=== PATIENT | male | born 1950 | race Caucasian/White ===

== ENCOUNTER → 2023-04-09 | Outpatient (REF) | payer OTHER, SELFPAY | LOC: DHSLP | PROVIDERS: ATTENDING PHYSICIAN Internal Medicine; FAMILY PHYSICIAN Family Medicine | DX: G47.19 Other hypersomnia (principal); R06.83 Snoring | CPT/HCPCS: 95800 ==

== ENCOUNTER → 2023-05-12 | Outpatient (REF) | payer OTHER, SELFPAY | LOC: DHSLP | PROVIDERS: ATTENDING PHYSICIAN Internal Medicine; FAMILY PHYSICIAN Family Medicine | DX: G47.33 Obstructive sleep apnea (adult) (pediatric) (principal); G47.61 Periodic limb movement disorder | CPT/HCPCS: 95810 ==

== ENCOUNTER 2023-07-21 15:21 | Emergency (ER) | payer OTHER, SELFPAY ==
[2023-07-21 15:23] VITALS: BP 139/71
[2023-07-21 15:24] VITALS: BMI 34.0
--- NOTE | 2023-07-21 17:17 | ED.GENMED ---
History of Present Illness
General
Chief Complaint: Extremity Pain (non-traumatic)
Time Seen by Provider: 07/21/23 15:53
Travel History
Have you had any contact with someone who has COVID-19?: No
Do you have any symptoms of coronavirus? Fever > 100 degrees, chills, cough, shortness of breath, sore throat, loss of taste or smell, muscle aches, or headache?: No
History of Present Illness
History of Present Illness:
73-year-old male presents emergency department for evaluation of right posterior knee pain has been ongoing for the past 2 weeks but worsening since onset. No associated fevers or chills. Was seen by his primary care physician and started on a
course of prednisone which did not help his symptoms. He is able to ambulate.
Review of Systems
Review of Systems
Allergies reviewed?: Yes
All Other Systems: ROS reviewed and negative except as documented in HPI and ROS
Phy Exam
Physical Exam
Physical Exam:
GEN: Well appearing, NAD, WDWN
HEENT: Oral mucosa moist, no scleral icterus
Cardiac: Regular rate
Lung: No respiratory distress, no tachypnea
MSK: No gross deformity or injuries. Right knee range of motion is normal with moderate pain elicited at terminal flexion. There is no obvious joint effusion.
Skin: Good color, no pallor or jaundice, no rashes
Neuro: AO x3, moves all extremities freely
Psych: Calm, cooperative
Course
Orders/Labs/Results
Orders:
Orders
07/21/23 15:29
Periph Venous Lwr Ext Rt US [US Periph Venous LOWER Ext RT] Urgent
Comment:
Reason For Exam: pain/swelling
07/21/23 16:35
CR Knee- Right 4 Or More View* Urgent
Comment:
Reason For Exam: non traumatic R knee pain
Vital Signs
Initial and Last Documented VS:
Initial Vital Signs
Temp Pulse Resp BP Pulse Ox
98.9 F 61 20 139/71 96
07/21/23 15:23 07/21/23 15:23 07/21/23 15:23 07/21/23 15:23 07/21/23 15:23
Last Documented Vital Signs
Temp Pulse Resp BP Pulse Ox
98.9 F 61 20 139/71 96
07/21/23 15:23 07/21/23 15:23 07/21/23 15:23 07/21/23 15:23 07/21/23 15:23
MDM/Problems Addressed
MDM/Problems Addressed:
No clinical signs concerning for septic arthritis. Knee x-rays show no evidence for acute bony pathology. Patient is able to ambulate. Will start him on NSAIDs and recommend outpatient orthopedic evaluation
*Critical Care Note
Total Time (30-74mins, 75-104mins- exclusive of procedures): Not Applicable
ED Attending Note
-
Portions of this chart may have been created with voice recognition software.� Occasional wrong word or��sound alike� substitutions may have occurred due to the inherent limitations of voice recognition software.
Discharge Plan
Departure
Patient Disposition: Home (Routine Discharge)
Date of Disposition: 07/21/23
Time of Disposition: 18:04
Patient with high blood pressure during this ER visit?: No
Discharge Problem:
Acute pain of right knee
Instructions: Swollen Joints (DC)
Prescriptions:
New
meloxicam 15 mg tablet
15 mg PO DAILY Qty: 20 0RF
Referrals:
Rich Kang MD [Family Provider] -
Jorge Alberto Abbasi MD [Active] -
Interventions
Interventions:
*Risk Screen - Suicide Last Done: 07/21/23 15:24
*General Assessment Last Done: 07/21/23 18:30
*Neglect/Abuse Screening Last Done: 07/21/23 15:24
ED- Fall Risk Assessment Last Done: 07/21/23 15:24
*Nursing Disposition Last Done: 07/21/23 18:30
ED-Skin Assessment Last Done: 07/21/23 18:30
Discharge Date and Time
Discharge Date/Time: 07/21/23 18:31
Print Language: NIGERIEN
== END 2023-07-21 18:31 | disposition home or self-care (01) ==
LOC: EMR 15:21
PROVIDERS: EMERGENCY PHYSICIAN Emergency Medicine; FAMILY PHYSICIAN Family Medicine
DX: M25.561 Pain in right knee (principal)
CPT/HCPCS: 99284; 73564; 93971

== ENCOUNTER → 2024-06-26 10:40 | Outpatient (REF) | payer OTHER, SELFPAY ==
[2024-06-26 11:45] LABS: % Basophils 0.8 % (0-2); % Eosinophils 8.9 % (0-6); % Immature Granulocytes 0.1 % (0-0.5); % Lymphocytes 32.6 % (20.5-51.1); % Monocytes 8.7 % (1.7-9.3); % Neutrophils 48.9 % (42.2-75.2); Absolute Basophils 0.1 10^3/uL (0-0.2); Absolute Eosinophils 0.7 10^3/uL (0-0.7); Absolute Lymphocytes 2.4 10^3/uL (1.2-3.4); Absolute Monocytes 0.6 10^3/uL (0.1-0.6); Absolute Neutrophils 3.6 10^3/uL (1.4-6.5); Hematocrit 43.9 % (39.0-52.0); Hemoglobin 14.9 g/dL (13.0-18.0); Mean Corp Hgb Conc. 33.9 g/dL (33.0-37.0); Mean Corpuscular Hgb 29.9 pg (27.0-31.0); Mean Corpuscular Volume 88.2 fL (80.0-94.0); Mean Platelet Volume 10.4 fL (7.4-10.4); Nucleated Red Blood Cells % 0 % (-); Platelet Count 204 10^3/uL (130-400); Red Blood Cell Count 4.98 10^6/uL (4.70-6.10); Red Cell Dist. Width 13.1 % (11.5-14.5); White Blood Cell Count 7.3 10^3/uL (4.8-10.8)
[2024-06-26 12:24] LABS: ALT (SGPT) 24 U/L (0-50); AST (SGOT) 24 U/L (17-59); Albumin 4.1 g/dl (3.5-5.0); Alkaline Phosphatase 65 U/L (38-126); Blood Urea Nitrogen 18 mg/dl (9-20); Carbon Dioxide 29 mmol/L (22-30); Chloride 105 mmol/L (98-107); Glucose 100 mg/dl (70-99); HDL Cholesterol 51 mg/dl; LDL Cholesterol, Calculated 126 mg/dl; Potassium 4.5 mmol/L (3.5-5.1); Sodium 142 mmol/L (135-145); Total Bilirubin 0.8 mg/dl (0.2-1.3); Total Cholesterol 203 mg/dl (50-199); Total Protein 6.6 g/dl (6.3-8.2); Triglyceride 131 mg/dl (10-149); Very Low Density Lipoprotein 26 mg/dl (0-30); eGFR > 60.00
[2024-06-26 12:47] LABS: TSH 2.59 uIU/ml (0.47-4.68)
[2024-06-26 13:24] LABS: Glycohemoglobin (HgbA1c) 5.7 % (4.0-5.6)
== END ==
LOC: REG 10:40
PROVIDERS: ATTENDING PHYSICIAN Internal Medicine; FAMILY PHYSICIAN Family Medicine
DX: E78.2 Mixed hyperlipidemia (principal); R60.0 Localized edema; E66.9 Obesity, unspecified
CPT/HCPCS: 36415; 80053; 80061; 83036; 84443; 85025

== ENCOUNTER → 2024-07-04 13:43 | Outpatient (REF) | payer OTHER, SELFPAY | LOC: HWRCS 13:43 | PROVIDERS: ATTENDING PHYSICIAN Internal Medicine; FAMILY PHYSICIAN Family Medicine | DX: E78.2 Mixed hyperlipidemia (principal); R60.0 Localized edema; E66.9 Obesity, unspecified | CPT/HCPCS: 93306 ==